=== PATIENT | male | born 1980 | race Caucasian/White ===

== ENCOUNTER 2019-04-22 09:19 | Day surgery (SDC) | payer BC ==
[~2019-04-22] VITALS: Ht 172.7 cm; Wt 102.3 kg
[2019-04-22 10:05] VITALS: BP 142/95
== END 2019-04-22 14:50 | disposition home or self-care (01) ==
LOC: OUT 09:19
PROVIDERS: ATTEND Orthopaedic Surgery
DX: D17.23 Benign lipomatous neoplasm of skin and subcutaneous tissue of right leg (principal); F17.200 Nicotine dependence, unspecified, uncomplicated
CPT/HCPCS: 27327; 27337; 88305; J0330; J0690; J1100; J2175; J2250; J2405; J2704; J2710; J3010; J3490; J7120